=== PATIENT | female | born 1985 | race Caucasian/White ===

== ENCOUNTER 2022-02-11 14:07 | Emergency (ER) | payer BC, SELFPAY ==
--- NOTE | ~2022-02-11 | XR_ITS ---
EXAMINATION: XR abdomen/kub 1V DATE: 02/11/2022 15:16 INDICATION: Generalized abdominal pain. TECHNIQUE: A supine view of the abdomen on 2 radiographs was obtained. COMPARISON: None. FINDINGS: There are no dilated loops of bowel. There is a moderate volume of stool in the colon. Ther e are calcifications overlying the kidneys measuring up to 2 mm. Calcifications in the pelvis are lik carlos phleboliths. IMPRESSION: 1. Nonobstructive bowel gas pattern. 2. Small bilateral kidney stones. Calcifications in the pelvis are likely phleboliths. Small distal u reteral stone cannot be excluded. Reviewed, dictated and finalized at location B. IMPRESSION: 1. Nonobstructive bowel gas pattern. 2. Small bilateral kidney stones. Calcifications in the pelvis are likely phleb oliths. Small distal ureteral stone cannot be excluded.
[2022-02-11 14:14] VITALS: BP 84/58; PULSE 103; RESP 14; TEMP 37.1; O2SAT 100
--- NOTE | 2022-02-11 14:29 | ED.NAVMDI ---
HPI - Nausea/Vomiting/Diarrhea General Chief complaint: Nausea/Vomiting/Diarrhea Stated complaint: Vomiting Time Seen by Provider: 02/11/22 14:29 Source: patient Mode of arrival: ambulatory Limitations: no limitations History of Present Illness HPI Narrative: Ms. Trevizo is a 36-year-old female patient presenting to the clinic today with complaints of nausea and vomiting since Friday and left lower quadrant pain since yesterday. She reports that the nausea and vomiting has resolved however she is still having intermittent left lower quadrant pain. Reports the pain comes and goes in severity and rates the pain currently a 3 out of 10 and sharp she denies any fever or chills. Pain is in the left side and radiates across the lower abdomen. No known exposure to anyone with COVID, strep, or flu Related Data Home Medications Medication Instructions Recorded Confirmed bupropion HCl 75 mg PO BID 02/11/22 02/11/22 Allergies Allergy/AdvReac Type Severity Reaction Status Date / Time alprazolam Allergy Unknown Hives Verified 02/11/22 14:25 MOXIFLOXACIN HCL Allergy Unknown Hives Uncoded 02/11/22 14:25 Review of Systems Review of Systems: Pertinent positives per HPI. Patient denies any fever, chills, rash, headache, visual changes, dizziness, cough, runny nose, sore throat, shortness of breath, chest pain, palpitations, diarrhea, or any urinary issues. PMFSH Comments At the time of my signature, I reviewed and agree with the nursing past medical, surgical, social, and family history. There is no relevant family history pertinent to the patient complaint. Exam Narrative: General: Well-developed, well nourished, in no apparent distress. Head: Normocephalic, atraumatic. Cardio: Regular rate and rhythm, s1 and s2 normal, no murmur appreciated. Resp: Clear to auscultation bilaterally, no rhonchi, rales, wheezing or rubs. Abdomen: Soft, pliable, bowel sounds present in all quadrants, tender to palpation mid abdomen and bilateral lower quadrant, no organomegly, no CVAT tenderness. No suprapubic tenderness Course Course Emergency Course: Portions of this record may have been created with voice recognition software. Level of Care: Express Care Visit Vital Signs Vital signs: Vital Signs Temperature 37.1 C 02/11/22 14:14 Pulse Rate 103 H 02/11/22 14:14 Respiratory Rate 14 02/11/22 14:14 Blood Pressure 84/58 L 02/11/22 14:14 Pulse Oximetry 100 02/11/22 14:14 Temperature 37.1 C 02/11/22 14:14 Pulse Rate 103 H 02/11/22 14:14 Respiratory Rate 14 02/11/22 14:14 Blood Pressure 84/58 L 02/11/22 14:14 Pulse Oximetry 100 02/11/22 14:14 Vital signs reviewed MDM - Nausea/Vomiting/Diarrhea MDM Narrative Medical decision making narrative: At the time of assessment patient is resting comfortably on the exam table. Due to her symptoms a influenza test, urinalysis, and x-ray were completed. Influenza testing was negative, urine testing was negative for any infection however it did show trace of blood, protein, and 4+ uro bili. Patient is currently on menses. X-ray shows possible distal ureter stone along with moderate stool in the colon and bilateral kidney stones within the kidneys. I suspect that this patient has mild constipation along with ureteral stone. Prescriptions for Toradol and Flomax was given the patient as well as we discussed some MiraLAX. Patient voiced understanding of discharge instructions. Patient was also given a urine strainer and hat to collect stone when it passes. Lab Data Labs: UCG Bedside Result Negative Reference Range: Negative Influenza A Screen Negative Reference Range: Negative Influenza B Screen Negative Reference Range: Negative Urine Glucose Negative
== END 2022-02-11 15:38 | disposition home or self-care (01) ==
PROVIDERS: Emergency Provider Nurse Practitioner Family
DX: N20.2 Calculus of kidney with calculus of ureter (principal); K59.00 Constipation, unspecified; J45.909 Unspecified asthma, uncomplicated; F32.A Depression, unspecified; C95.91 Leukemia, unspecified, in remission
CPT/HCPCS: 74018; 81003; 81025; 87804; 99203; G0463

== ENCOUNTER 2022-07-27 09:32 | Emergency (ER) | payer BC, SELFPAY ==
[2022-07-27 09:36] VITALS: BP 105/70; PULSE 71; RESP 18; TEMP 37.1; O2SAT 100
--- NOTE | 2022-07-27 09:37 | ED.UPPEXIN ---
HPI - Extremity Injury (Upper) General Chief Complaint: Extremity Injury, Upper Stated Complaint: trouble extending right arm Time Seen by Provider: 07/27/22 09:37 Source: patient and RN notes reviewed History of Present Illness HPI narrative: Patient is a 36-year-old female who presents the urgent care with complaints of pain to the right elbow with straightening. 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 Patient is right-hand dominant. Denies of any known injury or trauma to the arm. States that she only feels it during flexion and reports of some shooting pain . Patient states she has been taking ibuprofen. No other acute complaints. No acute distress noted. Patient read a plan of care. Some parts of this dictation were generated by voice recognition software and may contain typographical and/or grammatical inaccuracies. Related Data Home Medications Medication Instructions Recorded Confirmed bupropion HCl (smoking deter) 150 150 mg PO BID 07/27/22 07/27/22 mg tablet,12 hr sustained-release(smoking deterrent) Allergies Allergy/AdvReac Type Severity Reaction Status Date / Time alprazolam Allergy Unknown Hives Verified 07/27/22 09:45 MOXIFLOXACIN HCL Allergy Unknown Hives Uncoded 02/11/22 14:25 Review of Systems Review of Systems: CONSTITUTIONAL: Denies fever, chills, or sweats. EYES: Denies visual changes, redness, or discharge. ENT: Denies rhinorrhea, congestion, sore throat, or otalgia. CARDIOVASCULAR: Denies chest pain, palpitations, or edema. RESPIRATORY: Denies cough or dyspnea. GASTROINTESTINAL: Denies abdominal pain, nausea, vomiting, or diarrhea. GENITOURINARY: Denies dysuria or hematuria. SKIN: Denies rash or itching. MUSCULOSKELETAL: Reports of pain with range of motion to the right elbow NEUROLOGIC: Denies headache, numbness, or weakness. All other systems reviewed are negative, except as documented in HPI. PMFSH Comments At the time of my signature, I reviewed and agree with the nursing past medical, surgical, social, and family history. There is no relevant family history pertinent to the patient complaint. Exam Narrative: GENERAL: This is a well-nourished, well-developed patient, in no apparent distress. HEAD: normocephalic, atraumatic. EYES: PERRL. Sclera clear/white. Vision is grossly intact. EARS: External ears normal NOSE: External nose normal with no obvious nasal discharge, nares without redness, no rhinorrhea. THROAT: Mucous membranes moist NECK: Neck supple SKIN: warm, intact with no suspicious lesions or rash, good texture and turgor. NEURO: awake, alert, and oriented to person, place and time. There were no obvious focal neurologic abnormalities. EXTREMITIES: Range of motion right upper extremity within normal limits with mild to moderate exacerbated pain to the right antecubital fossa with flexion. No obvious deformity/erythema/ecchymosis/edema to the right upper extremity. Positive strong right radial pulse with capillary refill less than 2 seconds. Course Course Level of Care: Express Care Visit Vital Signs Vital signs: Vital Signs Temperature 98.8 F 07/27/22 09:36 Pulse Rate 71 07/27/22 09:36 Respiratory Rate 18 07/27/22 09:36 Blood Pressure 105/70 07/27/22 09:36 Pulse Oximetry 100 07/27/22 09:36 Oxygen Delivery Room Air 07/27/22 09:36 Temperature 98.8 F 07/27/22 09:36 Pulse Rate 71 07/27/22 09:36 Respiratory Rate 18 07/27/22 09:36 Blood Pressure 105/70 07/27/22 09:36 Pulse Oximetry 100 07/27/22 09:36 Oxygen Delivery Room Air 07/27/22 09:36 Reviewed MDM - Extremity Injury (Upper) MDM Narrative Medical decision making narrative: Advised patient to use ice/heat/Tylenol/ibuprofen as needed for pain or discomfort. Avoid any strenuous activity such as heavy lifting/pulling/pushing. Symptoms are likely related to either nerve compression and/or tend
== END 2022-07-27 09:50 | disposition home or self-care (01) ==
PROVIDERS: Emergency Provider Nurse Practitioner Family
DX: M77.9 Enthesopathy, unspecified (principal); J45.909 Unspecified asthma, uncomplicated; F41.9 Anxiety disorder, unspecified; F32.A Depression, unspecified; C95.90 Leukemia, unspecified not having achieved remission
CPT/HCPCS: 99213; G0463

== ENCOUNTER 2022-09-17 09:07 | Emergency (ER) | payer BC, SELFPAY ==
--- NOTE | 2022-09-17 09:09 | ED.URI ---
HPI - URI/Sore Throat General Chief Complaint: Upper Respiratory Infection Stated Complaint: sore throat aches and cough Time Seen by Provider: 09/17/22 09:09 Source: patient and RN notes reviewed History of Present Illness HPI Narrative: patient is a 36-year-old female who presents to urgent care with complaints of sore throat, body aches, cough and sinus congestion. Patient states most of her symptoms have been ongoing for the last 3 weeks with a cough and sore throat worsened yesterday. Patient denies any known fevers, nausea, vomiting, exposures. States that she has been taking Mucinex for her cough. No other acute complaints. No acute distress noted. Patient aware of the plan of care. Some parts of this dictation were generated by voice recognition software and may contain typographical and/or grammatical inaccuracies. Related Data Home Medications Medication Instructions Recorded Confirmed bupropion HCl (smoking deter) 150 150 mg PO BID 07/27/22 07/27/22 mg tablet,12 hr sustained-release(smoking deterrent) Allergies Allergy/AdvReac Type Severity Reaction Status Date / Time alprazolam Allergy Unknown Hives Verified 09/17/22 09:21 MOXIFLOXACIN HCL Allergy Unknown Hives Uncoded 02/11/22 14:25 Review of Systems Review of Systems: CONSTITUTIONAL: Denies fever, chills, or sweats. EYES: Denies visual changes, redness, or discharge. ENT: reports of sinus congestion sore throat CARDIOVASCULAR: Denies chest pain, palpitations, or edema. RESPIRATORY: Reports of cough without dyspnea GASTROINTESTINAL: Denies abdominal pain, nausea, vomiting, or diarrhea. GENITOURINARY: Denies dysuria or hematuria. SKIN: Denies rash or itching. MUSCULOSKELETAL: Denies back pain, joint pain. Reports body aches NEUROLOGIC: Denies headache, numbness, or weakness. All other systems reviewed are negative, except as documented in HPI. PMFSH Comments At the time of my signature, I reviewed and agree with the nursing past medical, surgical, social, and family history. There is no relevant family history pertinent to the patient complaint. Exam Narrative: GENERAL: This is a well-nourished, well-developed patient, in no apparent distress. HEAD: normocephalic, atraumatic. EYES: PERRL. Sclera clear/white. Vision is grossly intact. EARS: External ears normal, auditory canals clear and without drainage, TMs normal without perforation. Hearing grossly intact. NOSE: External nose normal with no obvious nasal discharge. Bilateral erythema nares with clear rhinorrhea THROAT: Mucous membranes moist. Mild erythema to posterior pharynx with moderate postnasal drainage without exudate or ulceration NECK: Neck supple, non-tender without lymphadenopathyy CARDIOVASCULAR: Regular rate and rhythm without murmurs, gallops, or rubs. RESPIRATORY: Clear to auscultation. Breath sounds equal bilaterally. No wheezes, rales, or rhonchi. SKIN: warm, intact with no suspicious lesions or rash, good texture and turgor. NEURO: awake, alert, and oriented to person, place and time. There were no obvious focal neurologic abnormalities. EXTREMITIES: No clubbing, cyanosis, or edema. Course Course Level of Care: Express Care Visit Vital Signs Vital signs: Vital Signs Temperature 97.9 F 09/17/22 09:19 Pulse Rate 119 H 09/17/22 09:19 Respiratory Rate 16 09/17/22 09:19 Blood Pressure 86/66 L 09/17/22 09:19 Pulse Oximetry 97 09/17/22 09:19 Oxygen Delivery Room Air 09/17/22 09:19 Temperature 97.9 F 09/17/22 09:21 Pulse Rate 119 H 09/17/22 09:21 Respiratory Rate 16 09/17/22 09:21 Blood Pressure 86/66 L 09/17/22 09:21 Pulse Oximetry 97 09/17/22 09:21 Oxygen Delivery Room Air 09/17/22 09:21 reviewed MDM - URI/Sore Throat MDM Narrative Medical decision making narrative: advised patient to continue Mucinex and use Tylenol/ ibuprofen as needed for body aches and pain. Use an [id number] daily antihistamine suc
[2022-09-17 09:19] VITALS: BP 86/66; PULSE 119; RESP 16; TEMP 36.6; O2SAT 97
[2022-09-17 09:21] VITALS: BP 86/66; PULSE 119; RESP 16; TEMP 36.6; O2SAT 97
[2022-09-17 09:33] VITALS: BP 95/58; PULSE 102; RESP 20; TEMP 37.3; O2SAT 97
== END 2022-09-17 09:35 | disposition home or self-care (01) ==
PROVIDERS: Emergency Provider Nurse Practitioner Family
DX: J02.9 Acute pharyngitis, unspecified (principal)
CPT/HCPCS: 87081; 99213; G0463

== ENCOUNTER 2023-07-07 09:01 | Emergency (ER) | payer BC, SELFPAY ==
[2023-07-07 09:32] VITALS: BP 97/74; PULSE 102; RESP 20; TEMP 37.1; O2SAT 100
--- NOTE | 2023-07-07 10:10 | ED.URI ---
HPI - URI/Sore Throat General Chief Complaint: Upper Respiratory Infection Stated Complaint: sore throat/lower back pain Source: patient and RN notes reviewed History of Present Illness HPI Narrative: 37 yo F presents to urgent care with complaints of sore throat and runny nose x 2 days. Pt is also reporting bilateral, posterior, hip pain, thinks it could be her sciatica. Pt states this pain will sometimes radiate into her buttocks. Denies any numbness, tingling, saddle anesthesia, incontinence of your stool. Pt denies any fevers, chills, N/V/D, chest pain, SOB, or dysuria. Related Data Home Medications Medication Instructions Recorded Confirmed acyclovir 400 mg tablet 400 mg PO BID 07/07/23 07/07/23 Allergies Allergy/AdvReac Type Severity Reaction Status Date / Time alprazolam Allergy Unknown Hives Verified 09/17/22 09:21 MOXIFLOXACIN HCL Allergy Unknown Hives Uncoded 02/11/22 14:25 Review of Systems Review of Systems: Pertinent positives and pertinent negatives per HPI. PMFSH Comments At the time of my signature, I reviewed and agree with the nursing past medical, surgical, social, and family history. There is no relevant family history pertinent to the patient complaint. Exam Narrative: GENERAL: This is a well-nourished, well-developed patient, in no apparent distress. HEAD: normocephalic, atraumatic. EYES: Sclera clear/white. Vision is grossly intact. EARS: External ears normal, auditory canals clear and without drainage, TMs normal without perforation. Hearing grossly intact. NOSE: External nose normal with no obvious nasal discharge, nares without redness, no rhinorrhea. THROAT: Mucous membranes moist, posterior pharynx clear. NECK: Neck supple, non-tender without lymphadenopathy, masses or thyromegaly. CARDIOVASCULAR: Regular rate and rhythm without murmurs, gallops, or rubs. RESPIRATORY: Clear to auscultation. Breath sounds equal bilaterally. No wheezes, rales, or rhonchi. GASTROINTESTINAL: Abdomen soft, non-tender, nondistended. Bowel sounds are active. No hepato-splenomegaly, or palpable masses. No guarding. SKIN: warm, intact with no suspicious lesions or rash, good texture and turgor. NEURO: awake, alert, and oriented to person, place and time. There were no obvious focal neurologic abnormalities. BACK: Nontender without deformity or crepitus. No flank tenderness. Course Course Level of Care: Express Care Visit Vital Signs Vital signs: Vital Signs Temperature 98.8 F 07/07/23 09:32 Pulse Rate 102 H 07/07/23 09:32 Respiratory Rate 20 07/07/23 09:32 Blood Pressure 97/74 L 07/07/23 09:32 Pulse Oximetry 100 07/07/23 09:32 Oxygen Delivery Room Air 07/07/23 09:32 Temperature 98.8 F 07/07/23 09:32 Pulse Rate 102 H 07/07/23 09:32 Respiratory Rate 20 07/07/23 09:32 Blood Pressure 97/74 L 07/07/23 09:32 Pulse Oximetry 100 07/07/23 09:32 Oxygen Delivery Room Air 07/07/23 09:32 reviewed MDM - URI/Sore Throat MDM Narrative Medical decision making narrative: Viral illness may last between 7-12days; antibiotic is NOT recommended at this time. Recommend antihistamine such as Benadryl at night time and Claritin/Zyrtec/Shahida during the day. Increase your Vitamin C intake. Steam from hot showers help with congestion. Also, recommend symptomatic treatment includes: rest, fluids, increase humidity of the air at home with a humidifier in the bedroom. Recommend Acetaminophen or nonsteroidal anti-inflammatory agents(NSAIDs) as directed in the bottle to reduce fever and/pain/headache. Avoid smoking/second-hand smoke. Limit visits to areas with large crowds. Frequent hand washing or hand rn behavioral health is one of the best ways to prevent spread of infection. Differential Diagnosis Differential diagnosis: Likely upper respiratory infection, viral infection and pharyngitis Lab Data Attestation: I reviewed the patient's lab results. Labs: Strep Screen
== END 2023-07-07 10:23 | disposition home or self-care (01) ==
PROVIDERS: Emergency Provider Nurse Practitioner Family
DX: J06.9 Acute upper respiratory infection, unspecified (principal)
CPT/HCPCS: 87081; 87880; 99213; G0463